=== PATIENT | female | born 1980 | race Caucasian/White ===

== ENCOUNTER 2020-10-28 22:25 | Emergency (ER) | payer BC ==
[~2020-10-28] VITALS: Ht 165.1 cm; Wt 101.7 kg
[2020-10-28] MEDS ORDERED: ASPIRIN 325 MG TAB PO ONE (23:00)
[2020-10-28 23:20] LABS: BASO # 0.1 10^3/uL (0.0-0.2); BASO % 0.5 % (0.0-1.0); EOS # 0.2 10^3/uL (0.0-0.5); EOS % 1.6 % (0.0-3.0); HEMATOCRIT 45.1 % (36.0-47.0); HEMOGLOBIN 15.3 g/dl (12.0-15.5); LYMPH # 3.6 10^3/uL (1.5-5.0); LYMPH % 26.9 % (24.0-44.0); MEAN CORPUSCULAR HEMOGLOBIN 30.8 pg (27.0-33.0); MEAN CORPUSCULAR HGB CONC 33.9 g/dl (32.0-36.5); MEAN CORPUSCULAR VOLUME 90.7 fl (80.0-96.0); MONO % 7.6 % (2.0-8.0); NEUTROPHILS # 8.4 10^3/uL (1.5-8.5); NEUTROPHILS % 62.8 % (36.0-66.0); PLATELET COUNT, AUTOMATED 346 10^3/uL (150-450); RED BLOOD COUNT 4.97 10^6/uL (4.00-5.40); WHITE BLOOD COUNT 13.3 10^3/uL (4.0-10.0)
--- NOTE | 2020-10-28 23:26 | REPVR ---
PROCEDURE INFORMATION: Exam: XR Chest Exam date and time: 10/28/2020 10:58 PM Age: 40 years old Clinical indication: Other: Chest pain TECHNIQUE: Imaging protocol: XR of the chest. Views: 1 view. COMPARISON: No relevant prior studies available. FINDINGS: Lungs: Unremarkable. No consolidation. Pleural spaces: Unremarkable. No pleural effusion. No pneumothorax. Heart/Mediastinum: Unremarkable. No cardiomegaly. Bones/joints: Unremarkable. Soft tissues: There are moderately generous overlying soft tissues. IMPRESSION: Negative chest. Electronically signed by: Jose Hartmann On 10/28/2020 23:26:20 PM
[2020-10-28 23:49] LABS: BLOOD UREA NITROGEN 9 MG/DL (7-18); CARBON DIOXIDE LEVEL 27 MEQ/L (21-32); CHLORIDE LEVEL 109 MEQ/L (98-107); CK-MB VALUE MASS < 1.0 NG/ML (<3.6); CPK CREATINE PHOSPHOKINASE 184 U/L (26-192); CREATININE FOR GFR 0.75 MG/DL (0.55-1.30); GLOMERULAR FILTRATION RATE > 60.0 (>58); GLUCOSE, FASTING 108 MG/DL (70-100); MB/CK RELATIVE INDEX 0.54 (< OR =4); SODIUM LEVEL 144 MEQ/L (136-145); TROPONIN I < 0.02 NG/ML (< 0.10)
[2020-10-29] MEDS ORDERED: NAPROXEN 250 MG TAB PO ONE
[2020-10-29] MEDS ORDERED: NAPR-837 PO (00:04)
[2020-10-29 00:15] VITALS: BP 139/65
--- NOTE | 2020-10-30 16:27 | ECGEPIP ---
[facility] - ED Test Date: 2020-10-28 Pat Name: LOR RESENDEZ Department: Room: - Gender: Female Outbound Sales Consultant: BENJAMIN : 1980 Requested By: ARNOLDO Brown Order Number: [id number] Reading MD: Pino Disla Measurements Intervals [place] Rate: 83 P: 38 RI: 172 QRS: 31 QRSD: 82 T: 49 QT: 368 QTc: 432 Interpretive Statements Normal sinus rhythm Comparison tracing not on file Electronically Signed on 10-30-2020 16:27:21 EDT by Pino Disla
== END 2020-10-29 00:31 | disposition home or self-care (01) ==
LOC: M ED 22:25
DX: R07.89 Other chest pain (principal); R06.02 Shortness of breath; I10 Essential (primary) hypertension; E78.5 Hyperlipidemia, unspecified; F17.210 Nicotine dependence, cigarettes, uncomplicated